=== PATIENT | female | born 1955 | race Caucasian/White ===

== ENCOUNTER 2022-05-29 13:12 | Outpatient (CLI) | payer SELFPAY ==
[2022-05-29 15:50] LABS: INR 1.45 (0.8-1.2)
== END 2022-05-29 13:13 | disposition home or self-care (01) ==
LOC: LAB 13:16
PROVIDERS: Visit Provider Student in an Organized Health Care Education/Training Program
DX: R31.9 Hematuria, unspecified (principal); T38.6X5A Adverse effect of antigonadotrophins, antiestrogens, antiandrogens, not elsewhere classified, initial encounter
CPT/HCPCS: 85610